=== PATIENT | male | born 1970 | race Two or more races ===

== ENCOUNTER → 2024-04-18 | Outpatient (CLI) | payer MEDICAID, SELFPAY ==
--- NOTE | 2024-04-18 10:46 | XR_ITS ---
Examination: Shoulder bilateral, 6 views Technique: Shoulder AP internal rotation, AP external rotation, Y view each shoulder total 6 views Exam date and time :April 18, 2024 1059 hours INDICATIONS: Bilateral shoulder pain one year FINDINGS: No shoulder fractures or dislocations Mild bilateral narrowing glenohumeral joints No calcific tendinitis IMPRESSION: Mild bilateral narrowing glenohumeral joints
== END | disposition home or self-care (01) ==
PROVIDERS: PCP Physician Assistant; Referring Provider Physician Assistant; Visit Provider Physician Assistant
DX: M25.812 Other specified joint disorders, left shoulder (principal); M25.811 Other specified joint disorders, right shoulder
CPT/HCPCS: 73030